=== PATIENT | male | born 1975 | race Two or more races ===

== ENCOUNTER 2021-07-08 04:47 | Emergency (ER) | payer BC ==
[~2021-07-08] VITALS: Ht 167.6 cm; Wt 81.6 kg
== END 2021-07-08 06:18 | disposition home or self-care (01) ==
LOC: ER 04:47
DX: S01.02XA Laceration with foreign body of scalp, initial encounter (principal); W01.198A Fall on same level from slipping, tripping and stumbling with subsequent striking against other object, initial encounter; Y93.89 Activity, other specified; Y92.012 Bathroom of single-family (private) house as the place of occurrence of the external cause; Y99.8 Other external cause status